=== PATIENT | female | born 1985 | race African-American/Black ===

== ENCOUNTER 2016-09-18 16:45 | Emergency (ER) | payer MEDICAID ==
[~2016-09-18] VITALS: Ht 167.6 cm; Wt 104.0 kg
[2016-09-18 21:56] VITALS: BP 119/64
[2016-09-18] MEDS ORDERED: LIDOCAINE HCL 1% 20ML VIAL (Pyxis) INJ MC ONE (23:45)
[2016-09-19 01:09] LABS: CLARITY URINE CLOUDY (CLEAR); COLOR URINE DARK YELLOW (YELLOW); GLUCOSE URINE NEGATIVE (NEGATIVE); KETONES URINE TRACE (NEGATIVE); LEUKOCYTE ESTERASE URINE TRACE (NEGATIVE); NITRITE URINE NEGATIVE (NEGATIVE); OCCULT BLOOD URINE NEGATIVE (NEGATIVE); PROTEIN URINE NEGATIVE (NEGATIVE); SPECIFIC GRAVITY URINE 1.027 (1.005-1.030)
[2016-09-19 01:33] LABS: SQUAMOUS EPITHELIAL CELL URINE 3+ /lpf (RARE/1+)
[2016-09-19 01:34] LABS: RBC URINE 0-2 /hpf (0-2); WBC URINE 0-2 /hpf (0-2)
[2016-09-19 01:35] LABS: BACTERIA URINE 1+
== END 2016-09-19 01:05 | disposition home or self-care (01) ==
LOC: ER 18:04
DX: L02.31 Cutaneous abscess of buttock (principal); Z98.890 Other specified postprocedural states
CPT/HCPCS: 10060; 81001; 99283; J3490; Z7610

== ENCOUNTER 2016-09-22 12:21 | Emergency (ER) | payer MEDICAID ==
[~2016-09-22] VITALS: Ht 167.6 cm; Wt 109.0 kg
[2016-09-22 13:56] VITALS: BP 123/71
[2016-09-22] MEDS ORDERED: KETOROLAC 60MG/2ML VIAL IM ONE (16:30)
== END 2016-09-22 17:00 | disposition home or self-care (01) ==
LOC: ER 14:31
DX: Z48.00 Encounter for change or removal of nonsurgical wound dressing (principal)
CPT/HCPCS: 96372; 99283; J1885; Z7610